=== PATIENT | female | born 1990 | race Caucasian/White ===

== ENCOUNTER 2021-11-29 14:57 | Outpatient (CLI) | payer BC, SELFPAY | END 2021-11-29 14:58 | disposition home or self-care (01) | LOC: LKVREF 12-02 15:41 | PROVIDERS: PCP Family Medicine; Visit Provider Nurse Practitioner Family | DX: N39.0 Urinary tract infection, site not specified (principal) | CPT/HCPCS: 87086 ==

== ENCOUNTER 2021-11-30 12:58 | Outpatient (CLI) | payer BC, SELFPAY ==
[2021-11-30 22:26] LABS: SARS PCR* Negative SARS-CoV-2 (Negative)
== END 2021-11-30 12:59 | disposition home or self-care (01) ==
LOC: FBOREF 12:58
PROVIDERS: PCP Family Medicine; Visit Provider Family Medicine
DX: Z20.822 Contact with and (suspected) exposure to COVID-19 (principal)
CPT/HCPCS: 87635

== ENCOUNTER 2021-12-01 19:21 | Outpatient (CLI) | payer BC, SELFPAY ==
[2021-12-01 23:28] LABS: Chlamydia DNA Amplified* NOT DETECTED (No Detected); GC DNA Amplified* NOT DETECTED (No Detected)
== END 2021-12-01 19:22 | disposition home or self-care (01) ==
LOC: LKVREF 19:21
PROVIDERS: PCP Family Medicine; Visit Provider Nurse Practitioner Family
DX: R30.0 Dysuria (principal)
CPT/HCPCS: 87491; 87591

== ENCOUNTER 2021-12-28 09:36 | Emergency (ER) | payer BC, SELFPAY ==
[2021-12-28 09:47] VITALS: BP 131/83; PULSE 76; RESP 18; TEMP 36.6; O2SAT 99; BMI 22.5
--- NOTE | 2021-12-28 10:19 | CRLHL7_ITS ---
For Patients: As a result of the Cures Act, medical imaging exams and procedure reports are released immediately into your electronic medical record. You may view this report before your referring provider. If you have questions, please contact your health care provider. Indication: Injury and pain. Technique: Left knee 3 views Comparison: None Findings: Bones: Lateral patellar tilt. No fractures or bone lesions. Joint spaces: No joint effusion. Joint spaces are well maintained. No degenerative changes. Soft tissues: Unremarkable. Impression: Lateral patellar tilt. No fracture. Dictated by Da Murcia MD @ 12/28/2021 10:57:51 AM (Electronically Signed)
--- NOTE | 2021-12-28 10:30 | ED.GENADULT ---
HPI - General Adult General Time Seen by Provider: 10:30 Date Seen: 12/28/21 Chief complaint: Extremity Pain/Injury, Lower Stated complaint: left knee pain Time Seen by Provider: 12/28/21 09:38 Source: patient Mode of arrival: ambulatory Limitations: no limitations History of Present Illness HPI narrative: Patient is a 31 white female injured her left knee kayaking when she bumped into a rock this weekend. It has been swollen she has been on the go, and been ambulatory, she notices increased stiffness and swelling around the kneecap area. A rock contused her lower kneecap, she reports she is up-to-date on immunizations. No chronic health problems other than a urinary tract infection. She is able ambulate as mention but her knee feels stiff, is slightly bruised and swollen. Related Data Home Medications Medication Instructions Recorded Confirmed medical cannibus 12/28/21 Allergies Allergy/AdvReac Type Severity Reaction Status Date / Time vicodin Allergy Mild vomiting Uncoded 12/28/21 09:53 Review of Systems Status of ROS: Reports: 6 or more systems reviewed and unremarkable except as noted in History and below PFSH PFSH Social History Smoking Status: Light tobacco smoker Do you use any of these nicotine containing products: None How often do you have a drink containing alcohol: 2-4 times a month AUDIT-C Alcohol total score: 2 Non-prescribed substance use: denies use Exam Narrative: Exam Narrative: Objective: In general patient is no apparent distress left knee exam shows some prepatellar bursa and suprapatellar fluid diffusion, quadriceps feels intact, no medial lateral joint line tenderness, anterior posterior drawer test is negative distal CMS in left lower extremities unremarkable, couple abrasions about the knee. Const: Vital Signs, click to edit/add: Vital Signs - 24 hr 12/28/21 09:47 Temperature 97.9 F Pulse Rate [Right Pulse Oximeter] 76 Respiratory Rate 18 Blood Pressure [Ri ght Upper Arm] 131/83 Pulse Oximetry 99 Oxygen Delivery Me thod Room Air Course Vital Signs Vital signs: Initial Vital Signs Temperature 97.9 F 12/28/21 09:47 Temperature Source Temporal Artery Scan 12/28/21 09:47 Pulse Rate 76 12/28/21 09:47 Respiratory Rate 18 12/28/21 09:47 Blood Pressure 131/83 12/28/21 09:47 Blood Pressure Mean 99 12/28/21 09:47 Blood Pressure Position Sitting 12/28/21 09:47 Pulse Oximetry 99 12/28/21 09:47 Oxygen Delivery Method 12/28/21 09:47 Vital Signs Temperature 97.9 F 12/28/21 09:47 Pulse Rate 76 12/28/21 09:47 Respiratory Rate 18 12/28/21 09:47 Blood Pressure 131/83 12/28/21 09:47 Pulse Oximetry 99 12/28/21 09:47 Oxygen Delivery Method 12/28/21 09:47 Temperature 97.9 F 12/28/21 09:47 Pulse Rate 76 12/28/21 09:47 Respiratory Rate 18 12/28/21 09:47 Blood Pressure 131/83 12/28/21 09:47 Pulse Oximetry 99 12/28/21 09:47 Oxygen Delivery Method 12/28/21 09:47 Medical Decision Making MDM Narrative Medical decision making narrative: The patient will get a x-ray including sunrise view of the left knee, will place a knee immobilizer. If that x-ray is negative the knee immobilizer weight-bearing as tolerated light activity icing on aggressive basis Advil 600 q.i.d. x3 days, follow-up with primary care at that time. Addendum: The patient's x-ray by my review use shows no evidence of fracture or malalignment. There is maybe a trace joint effusion. Will place the patient in immobilizer, icing Advil, light activity, weightbear minimally, follow up with primary care in 2-3 days certainly sooner changes or concerns can return to the ED. I suspect this is a soft tissue injury and knee contusion with mild swelling that just needs to come down in swelling. Discharge Plan Discharge Clinical Impression: Acute knee pain Patient Disposition: Home, Self-Care Condition: Stable Additional Instructions: Light activity, weight-bearing as tolerated, knee immobilizer, icing 20 minutes 3 times a day if possible, Advil 600 mg t.i.d. for the next several days, follow-up with primary care in 48 hours, return to ED sooner problems or concerns. Activity Level: Light activity and Weight Bearing as Tolerated Activity Detail: Use knee immobilizer Discharge Diet: Regular Prescriptions: No Action medical cannibus Follow Up/Referrals: Gray,John, MD [Primary Care Provider] - Stand Alone Forms: [employer] Info Instructions
== END 2021-12-28 11:10 | disposition home or self-care (01) ==
PROVIDERS: Emergency Provider Family Medicine; PCP Family Medicine
DX: S80.02XA Contusion of left knee, initial encounter (principal); W22.8XXA Striking against or struck by other objects, initial encounter; Y93.89 Activity, other specified; Y92.838 Other recreation area as the place of occurrence of the external cause; Y99.8 Other external cause status
CPT/HCPCS: 73562; 99283; 99284

== ENCOUNTER 2022-02-13 13:40 | Outpatient (CLI) | payer BC, SELFPAY | END 2022-02-13 13:41 | disposition home or self-care (01) | PROVIDERS: PCP Family Medicine; Visit Provider Nurse Practitioner Family | DX: N39.0 Urinary tract infection, site not specified (principal) | CPT/HCPCS: 87086 ==

== ENCOUNTER 2022-02-20 09:52 | Outpatient (CLI) | payer BC, SELFPAY ==
[2022-02-20 14:31] LABS: Albumin* 4.9 g/dL (3.3-5.0); Chloride* 99 mmol/L (96-114)
[2022-02-20 14:32] LABS: Potassium* 3.9 mmol/L (3.6-5.1); Sodium* 136 mmol/L (135-149)
[2022-02-20 14:34] LABS: Alkaline Phosphatase* 57 U/L (40-150); Aspartate Amino Transferase* 29 U/L (12-35); Bilirubin Total* 0.5 mg/dL (0.1-1.5); Blood Urea Nitrogen* 15 mg/dL (5-24); Carbon Dioxide* 28 mmol/L (20-32); Creatinine* 0.7 mg/dL (0.5-1.5); Estimated Glomerular Filt Rate 118 ml/min; Gamma Glutamyl Transpeptidase* 38 U/L (8-55); Glucose* 79 mg/dL (60-115); Total Protein* 7.3 g/dL (6.0-8.3)
[2022-02-20 14:35] LABS: Alanine Aminotransferase* 22 U/L (4-35); Calcium* 9.4 mg/dL (8.4-10.6)
== END 2022-02-20 09:53 | disposition home or self-care (01) ==
PROVIDERS: PCP Family Medicine; Visit Provider Family Medicine
DX: Z01.419 Encounter for gynecological examination (general) (routine) without abnormal findings (principal); F31.9 Bipolar disorder, unspecified
CPT/HCPCS: 80053; 82977

== ENCOUNTER 2022-08-28 10:16 | Emergency (ER) | payer BC, SELFPAY ==
[2022-08-28 10:31] VITALS: BP 130/86; PULSE 85; RESP 18; TEMP 36.9; O2SAT 98; BMI 23.4
--- NOTE | 2022-08-28 11:05 | PC.NURSE ---
pt asked to go outside after triage, told pt to remain in waiting room, admissions staff told this remote mortgage underwriter that patient was no longer in lobby, pt observed out at her vehicle smoking, standing next to vehicle
--- NOTE | 2022-08-28 12:28 | ED.WOUNDLAC ---
HPI - Wound/Laceration General Chief Complaint: Laceration/Wound Stated Complaint: R ankle lac Time Seen by Provider: 08/28/22 11:42 History of Present Illness HPI narrative: This 31-year-old female comes in with a laceration to her right lower leg. She was at work and a Pallet cut the skin overlying her right Achilles tendon. She is very fearful of such wounds and the side of blood and did become lightheaded and had brief loss of consciousness. She did not fall or injure herself when this happened. She is unsure of her tetanus status. A nurse reviewed records and see the last tetanus was in 1994. Related Data Home Medications Medication Instructions Recorded Confirmed medical cannibus 12/28/21 02/13/22 Allergies Allergy/AdvReac Type Severity Reaction Status Date / Time acetaminophen AdvReac Mild Nausea Verified 02/20/22 09:10 hydrocodone AdvReac Mild Nausea Verified 02/20/22 09:10 vicodin Allergy Mild vomiting Uncoded 02/20/22 09:10 Review of Systems Status of ROS: Reports: 10 or more systems reviewed and unremarkable except as noted in History and below Narrative: Constitutional: No fevers, no weight gain or loss. Eyes: No discharge. No vision changes. HENT: No congestion, no sore throat, no ear pain. Cardiovascular: No chest pain, no palpitations. Respiratory: No shortness of breath, no wheezes, no cough. Gastrointestinal: No abdominal pain, no vomiting, no diarrhea. Genitourinary: No dysuria, no hematuria. Musculoskeletal: Normal range of motion. Skin: No rashes, no pruritis. Laceration across the skin overlying the right Achilles tendon. Neurological: No dizziness, weakness, sensory change, speech change. Endo/Heme/Allergies: No bruising or bleeding. No polydipsia. Pysch: no suicidality, no anxiety, no insomnia. All other systems reviewed and are negative. 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) ?F15.11 - Other stimulant abuse, in remission (ICD-10) Generalized anxiety disorder (12/21/14) ?F41.1 - Generalized anxiety disorder (ICD-10) Cannabis abuse ?F12.10 - Cannabis abuse, uncomplicated (ICD-10) Bipolar I disorder ?F31.9 - Bipolar disorder, unspecified (ICD-10) Family History (Updated 03/05/22 @ 19:41 by Da Gray MD) Father Heart disease Alcohol dependence Paternal Grandfather Heart disease Mother Alcohol dependence Social History (Updated 02/21/22 @ 23:25 by Da Gray MD) Narrative: Medical marijuana use Single, 2 kids, Alberto, near daily EtOH, THC, smoker Smoking Status: Current every day smoker Do you use any of these nicotine containing products: None How often do you have a drink containing alcohol: 2-4 times a month AUDIT-C Alcohol total score: 2 Non-prescribed substance use: denies use Little interest or pleasure in doing things: not at all Feeling down, depressed, or hopeless: several days Exam Narrative: Exam Narrative: Constitutional: Well-developed, well-nourished, no acute distress. HEENT: Normocephalic, atraumatic. Neck: Normal range of motion. Nontender. Supple. Heart: Intact distal pulses. Lungs: No chest discomfort. No wheezes, rhonchi, or rales. Abdomen: Nontender. Back: Normal range of motion. Extremities: Normal range of motion. 2 cm linear laceration of the skin overlying the right Achilles tendon. This is a full-thickness wound to the skin but there is no evidence of any injury deeper to this Skin. Her tendon function is intact. Skin: Intact. No rash. Warm. No erythema or pallor. Neurologic: No altered sensation. No weakness. Alert and oriented. Psychiatric: No suicidality. No anxiety or depression. No insomnia. Nursing notes and vitals signs are reviewed. Const: Vital Signs, click to edit/add: Vital Signs - 24 hr 08/28/22 10:31 Temperature 98.4 F Pulse Rate [Right Pulse Oximeter] 85 Respiratory Rate 18 Blood Pressure [Ri ght Upper Arm] 130/86 Pulse Oximetry 98 Oxygen Delivery Me thod Room Air Course Vital Signs Vital signs: Initial Vital Signs Temperature 98.4 F 08/28/22 10:31 Temperature Source Temporal Artery Scan 08/28/22 10:31 Pulse Rate 85 08/28/22 10:31 Respiratory Rate 18 08/28/22 10:31 Blood Pressure 130/86 08/28/22 10:31 Blood Pressure Mean 100 08/28/22 10:31 Blood Pressure Position Sitting 08/28/22 10:31 Pulse Oximetry 98 08/28/22 10:31 Oxygen Delivery Method Room Air 08/28/22 10:31 Vital Signs Temperature 98.4 F 08/28/22 10:31 Pulse Rate 85 08/28/22 10:31 Respiratory Rate 18 08/28/22 10:31 Blood Pressure 130/86 08/28/22 10:31 Pulse Oximetry 98 08/28/22 10:31 Oxygen Delivery Method Room Air 08/28/22 10:31 Temperature 98.4 F 08/28/22 10:31 Pulse Rate 85 08/28/22 10:31 Respiratory Rate 18 08/28/22 10:31 Blood Pressure 130/86 08/28/22 10:31 Pulse Oximetry 98 08/28/22 10:31 Oxygen Delivery Method Room Air 08/28/22 10:31 MDM - Wound/Laceration MDM Narrative Medical decision making narrative: This patient has a laceration in her right lower leg that would benefit from repair. I did discuss options with the patient. She is very fearful of suture repair and states that she would need something to sedate her if this was done. I did offer Dermabond which she elected. This was applied with excellent results. The wound was strength and with Steri-Strips and a Band-Aid. Instructions were given regarding wound care. The patient did receive a tetanus vaccination. Discharge Plan Discharge Clinical Impression: Laceration Condition: Improved Additional Instructions: Keep wound clean and dry. Increase activity as tolerated. Follow up with MD return if worsening. Prescriptions: No Action medical cannibus Follow Up/Referrals: Da Gray MD [Primary Care Provider] - Stand Alone [facility] Info Instructions
[2022-08-28] MEDS: TETANUS/DIPHTH/PERTUSSIS 0.5 ML SYRINGE IM (13:03)
== END 2022-08-28 13:05 | disposition home or self-care (01) ==
PROVIDERS: Emergency Provider Emergency Medicine Emergency Medical Services; PCP Family Medicine
DX: S81.811A Laceration without foreign body, right lower leg, initial encounter (principal); W45.8XXA Other foreign body or object entering through skin, initial encounter; W22.09XA Striking against other stationary object, initial encounter; Y99.0 Civilian activity done for income or pay
CPT/HCPCS: 90471; 90715; 99283; 99284

== ENCOUNTER 2023-01-23 11:42 | Outpatient (CLI) | payer BC, SELFPAY ==
[2023-01-23 14:04] LABS: Clue Cells No Clue Cells Seen (None Seen); Trichomonas No Trichomonas Seen (None Seen); Yeast No Yeast Seen (None Seen)
== END 2023-01-23 11:43 | disposition home or self-care (01) ==
LOC: FBOREF 12:35
PROVIDERS: PCP Family Medicine; Visit Provider Family Medicine
DX: N89.8 Other specified noninflammatory disorders of vagina (principal)
CPT/HCPCS: 87210

== ENCOUNTER 2023-01-30 12:05 | Outpatient (CLI) | payer BC, SELFPAY | END 2023-01-30 12:06 | disposition home or self-care (01) | LOC: NFLDREF 01-31 12:39 | PROVIDERS: PCP Family Medicine; Referring Provider Family Medicine; Visit Provider Nurse Practitioner Family | DX: R30.9 Painful micturition, unspecified (principal); N89.8 Other specified noninflammatory disorders of vagina; N76.0 Acute vaginitis; B96.89 Other specified bacterial agents as the cause of diseases classified elsewhere; N39.0 Urinary tract infection, site not specified; N30.00 Acute cystitis without hematuria | CPT/HCPCS: 87086 ==

== ENCOUNTER 2023-05-21 16:19 | Outpatient (CLI) | payer BC, SELFPAY | END 2023-05-21 16:20 | disposition home or self-care (01) | LOC: NFLDREF 05-22 20:07 | PROVIDERS: PCP Family Medicine; Referring Provider Family Medicine; Visit Provider Nurse Practitioner | DX: R30.0 Dysuria (principal); N76.0 Acute vaginitis; B96.89 Other specified bacterial agents as the cause of diseases classified elsewhere | CPT/HCPCS: 87086; 87186 ==

== ENCOUNTER 2024-02-01 09:48 | Outpatient (CLI) | payer OTHER, SELFPAY | END 2024-02-01 09:49 | disposition home or self-care (01) | LOC: NFLDREF 02-02 19:04 | PROVIDERS: PCP Family Medicine; Referring Provider Family Medicine; Visit Provider Family Medicine | DX: N39.0 Urinary tract infection, site not specified (principal); B96.20 Unspecified Escherichia coli [E. coli] as the cause of diseases classified elsewhere | CPT/HCPCS: 87086; 87186 ==

== ENCOUNTER 2024-06-12 09:39 | Outpatient (CLI) | payer BC, SELFPAY | END 2024-06-12 09:40 | disposition home or self-care (01) | LOC: NFLDUCREF 09:40 | PROVIDERS: PCP Family Medicine; Visit Provider Nurse Practitioner Family | DX: R30.0 Dysuria (principal) | CPT/HCPCS: 87086 ==

== ENCOUNTER 2024-08-28 08:57 | Outpatient (CLI) | payer BC, SELFPAY ==
[2024-08-28 14:13] LABS: Yeast No Yeast Seen (None Seen)
[2024-08-28 14:14] LABS: Clue Cells <20% Clue Cells Seen (None Seen); Trichomonas No Trichomonas Seen (None Seen)
[2024-08-28 14:55] LABS: Chlamydia DNA Amplified* NOT DETECTED (No Detected); GC DNA Amplified* NOT DETECTED (No Detected)
[2024-08-30 00:38] LABS: HPV Source Cervical; HPV, High Risk by TMA Not Detected
== END 2024-08-28 08:58 | disposition home or self-care (01) ==
PROVIDERS: PCP Family Medicine; Visit Provider Family Medicine
DX: N89.8 Other specified noninflammatory disorders of vagina (principal); Z11.3 Encounter for screening for infections with a predominantly sexual mode of transmission; Z11.51 Encounter for screening for human papillomavirus (HPV); Z12.4 Encounter for screening for malignant neoplasm of cervix
CPT/HCPCS: 87210; 87491; 87591; 87624; 87625; 88141; 88142